=== PATIENT | male | born 1960 | race Caucasian/White ===

== ENCOUNTER 2022-12-25 04:44 | Day surgery (SDC) | payer OTHER ==
[2022-12-24 12:32] VITALS: BMI 25.1
[2022-12-25 11:01] VITALS: TEMP 97
[2022-12-25 11:26] VITALS: RESP 12
[2022-12-25 11:53] VITALS: BP 132/82; PULSE 62
== END 2022-12-25 11:45 | disposition home or self-care (01) ==
LOC: JASU-ENDO 04:44
PROVIDERS: ATTEND Student in an Organized Health Care Education/Training Program
PROC: 0DBL8ZX Excision of Transverse Colon, Via Natural or Artificial Opening Endoscopic, Diagnostic (ICD-10-PCS; 2022-12-25)
PROC: 0DBM8ZX Excision of Descending Colon, Via Natural or Artificial Opening Endoscopic, Diagnostic (ICD-10-PCS; principal; 2022-12-25 10:00)
DX: Z12.11 Encounter for screening for malignant neoplasm of colon (principal); D12.3 Benign neoplasm of transverse colon; D12.4 Benign neoplasm of descending colon; K64.8 Other hemorrhoids
CPT/HCPCS: 88305-TC